=== PATIENT | female | born 1940 | race Caucasian/White ===

== ENCOUNTER → 2018-05-29 10:41 | Outpatient (CLI) | payer MEDICARE, SELFPAY ==
--- NOTE | 2018-05-29 13:38 | PFTCOMP ---
COMPLETE PULMONARY FUNCTION TEST INTERPRETATION Brief HPI: Patient is a 77 year old female, currently under the care of Dr. Bauer, who presents to [facility] for complete pulmonary function tests secondary to diagnosis of COPD. Respiratory therapist reports good effort and reproducible results. Interpretation: Forced expiration spirometry shows a severe large airways obstructive ventilatory defect with an FEV1 of 38% predicted. There is a significant bronchodilator response in FVC by ATS criteria. Spirograms are of good quality and plateau slowly, indicating slowly emptying areas of the lungs. The respiratory flow volume loop shows decreased expiratory flow rates at all lung volumes consistent with airway obstruction. Lung volumes by body plethysmography show a normal total lung capacity at 5.25 L, 115% predicted. FRC and RV are elevated out of proportion. Lung volume measurements are consistent with hyperinflation and air-trapping. Diffusion capacity by carbon monoxide was not reported. The airway resistance is elevated. No previous pulmonary function tests were available for review. Impression: Partially reversible severe large airways obstructive ventilatory defect resulting in air trapping with hyperinflation and consistent with patient's diagnosis of COPD.
--- NOTE | 2018-05-29 13:41 | PFTCOMP_ITS ---
COMPLETE PULMONARY FUNCTION TEST INTERPRETATION Brief HPI: Patient is a 77 year old female, currently under the care of Dr. Bauer , who presents to [facility] for complete pulmonary function tests secondary to diagnosis of COPD. Respiratory therapist reports good effort and reproducible results. Interpretation: Forced expiration spirometry shows a severe large airways obstructive ventilatory defect with an FEV1 of 38% predicted. There is a significant bronchodilator response in FVC by ATS criteria. Spirograms are of good quality and plateau slowly, indicating slowly emptying areas of the lungs. The respiratory flow volume loop shows decreased expiratory flow rates at all lung volumes consistent with airway obstruction. Lung volumes by body plethysmography show a normal total lung capacity at 5.25 L , 115% predicted. FRC and RV are elevated out of proportion. Lung volume measurements are consistent with hyperinflation and air-trapping. Diffusion capacity by carbon monoxide was not reported. The airway resistance is elevated. No previous pulmonary function tests were available for review. Impression: Partially reversible severe large airways obstructive ventilatory defect resulting in air trapping with hyperinflation and consistent with patient's diagnosis of COPD.
== END ==
PROVIDERS: Family Provider Family Medicine; PCP Family Medicine; Visit Provider Internal Medicine Critical Care Medicine
DX: J44.9 Chronic obstructive pulmonary disease, unspecified (principal); F17.201 Nicotine dependence, unspecified, in remission
CPT/HCPCS: 94060; 94726; 94729

== ENCOUNTER → 2018-06-10 10:56 | Outpatient (CLI) | payer MEDICARE, SELFPAY ==
[2018-06-10 11:28] VITALS: PULSE 91; PULSE 92; PULSE 93; PULSE 95; PULSE 96; PULSE 99; O2SAT 88; O2SAT 89; O2SAT 92; O2SAT 93; O2SAT 95; O2SAT 98
--- NOTE | 2018-06-10 11:30 | CPS ---
Patient began 6 min walk test and at the 3 minute jose armando the patient's Room Air pulse ox was 88%. Patient was started on 2L. Patient continued 6 min walk test on 2L patient's pulse ox stayed above 89% for the remainder of test. Nanci Rose RRT
--- NOTE | 2018-06-10 13:43 | PCM.PSN.6M ---
PSN 6 Minute Walk Test - 6 Minute Walk Test 6 Minute Walk Test: 6 Minute Walk Test PSN:6-Minute Walk Test Start: 06/10/18 11:28 Freq: Status: Active Protocol: RESP.6MINW Document 06/10/18 11:28 ANDREW (Rec: 06/10/18 11:33 [id number] [id number]) 6 Minute Walk Test Date Performed 06/10/18 Time Performed 11:00 Height 5 ft 3 in Weight: 70.632 kg Weight in Pounds 155.[address]: Leonardo Bauer Assistive device used: None Pre-test Oxygen Delivery Method Room Air Pulse Ox (%) 95 Pulse Rate (60-100 beats/min) 92 Dyspnea Mariama Scale (0-10) 1 Exertion Mariama Scale (6-20) 6 1st minute Oxygen Delivery Method Room Air Pulse Ox (%) 92 Pulse Rate (60-100 beats/min) 99 2nd minute Oxygen Delivery Method Room Air Pulse Ox (%) 89 Pulse Rate (60-100 beats/min) 99 3rd minute Oxygen Delivery Method Room Air Pulse Ox (%) 88 Pulse Rate (60-100 beats/min) 95 4th minute Oxygen Flow Rate (L/min) (L/min) 2 Oxygen Delivery Method Nasal Cannula Pulse Ox (%) 95 Pulse Rate (60-100 beats/min) 91 5th minute Oxygen Flow Rate (L/min) (L/min) 2 Oxygen Delivery Method Nasal Cannula Pulse Rate (60-100 beats/min) 93 Dyspnea Mariama Scale (0-10) 97 6th minute Oxygen Flow Rate (L/min) (L/min) 2 Oxygen Delivery Method Nasal Cannula Pulse Ox (%) 93 Pulse Rate (60-100 beats/min) 99 Dyspnea Mariama Scale (0-10) 2 Exertion Mariama Scale (6-20) 13 Post-test Oxygen Flow Rate (L/min) (L/min) 2 Oxygen Delivery Method Nasal Cannula Pulse Ox (%) 98 Pulse Rate (60-100 beats/min) 96 Full Laps Walked 16 Partial Lap, Number of Tiles Walked 25 Total Distance Walked (ft) 969 06/10/18 11:30 Cardiopulmonary Services by Nanci Berg Patient began 6 min walk test and at the 3 minute jose armando the patient's Room Air pulse ox was 88%. Patient was started on 2L. Patient continued 6 min walk test on 2L patient's pulse ox stayed above 89% for the remainder of test. Nancijeanine Rose RRT Initialized on 06/10/18 11:30 - END OF NOTE - Interpretation Interpretation: The patient was able to ambulate 969 feet over the course of 6 minutes on room air with no assistive devices or breaks. The patient did desaturate to 88% in the third minute of ambulation, but improved to 95% on 2 L. No significant tachycardia was noted. These findings are consistent with a respiratory limitation exercise tolerance. - Recommendations Recommendations: No supplemental oxygen is indicated at rest, but patient should be using 2 L nasal cannula with any exertion.
== END ==
PROVIDERS: Family Provider Family Medicine; PCP Family Medicine; Visit Provider Internal Medicine Critical Care Medicine
DX: J44.9 Chronic obstructive pulmonary disease, unspecified (principal); F17.201 Nicotine dependence, unspecified, in remission
CPT/HCPCS: 94618

== ENCOUNTER → 2018-06-12 14:07 | Outpatient (CLI) | payer MEDICARE, SELFPAY | PROVIDERS: Family Provider Family Medicine; PCP Family Medicine; Visit Provider Internal Medicine Critical Care Medicine | DX: R91.8 Other nonspecific abnormal finding of lung field (principal) | CPT/HCPCS: 71250 ==

== ENCOUNTER → 2018-06-16 11:55 | Outpatient (CLI) | payer MEDICARE, SELFPAY ==
[2018-06-16 14:06] LABS: Absolute Lymphocyte Count 2.68 X10^3/ul (0.83-4.51); Absolute Neutrophil Count 5.7 X10^3/uL (2.0-7.7); Basophil# 0.03 X10^3/uL; Basophil% 0.3 % (0-1); Eosinophils% 2.1 % (0-5); Hematocrit 42.8 % (37-47); Hemoglobin 14.4 g/dl (12.0-15.0); Lymphocyte # 2.68 X10^3/ul (4.0); Lymphocyte % 28.3 % (19-41); Mean Corp Hgb Conc 33.6 g/gl (32-36); Mean Corpuscular Hgb 30.9 pg (27.0-32.0); Mean Corpuscular Volume 91.8 fL (81-99); Mean Platelet Vol. 9.5 fl (6.2-12.0); Monocyte# 0.85 X10^3/uL; Neutrophil # 5.69 X10^3/uL (2.7-7.7); Neutrophil % 60.1 % (47-70); Platelet Count 249 K/mm3 (150-450); RBC Distribution Width CV 13.2 % (11.6-14.6); RBC Distribution Width SD 43.4 fl (35.1-43.9); Red Blood Count 4.66 M/mm3 (4.2-5.4); White Blood Count 9.5 K/mm3 (4.4-11.0)
[2018-06-16 14:10] LABS: POSITIVE COUNT NO; POSITIVE DIFFERENTIAL NO; POSITIVE MORPHOLOGY NO
[2018-06-19 03:08] LABS: Alternaria alternata <0.10 kU/L (Class 0); Bermuda Grass <0.10 kU/L (Class 0); Bluegrass, Kentucky <0.10 kU/L (Class 0); Cat Hair/Dander, Standard <0.10 kU/L (Class 0); D farinae Mite <0.10 kU/L (Class 0); D pteronyssinus <0.10 kU/L (Class 0); Dog Epithelia <0.10 kU/L (Class 0); Elm, American White <0.10 kU/L (Class 0); Oak, White <0.10 kU/L (Class 0); Plantain, English <0.10 kU/L (Class 0); Ragweed, Short/Common <0.10 kU/L (Class 0)
[2018-06-20 09:45] LABS: Mouse Urine <0.10 kU/L (Class 0)
[2018-06-20 20:07] LABS: Aspirgillus flavus Negative (Neg:<1:1); Aspirgillus fumigatus Negative (Neg:<1:1); Aspirgillus niger Negative (Neg:<1:1)
[2018-06-23 12:57] LABS: Immunoglobulin E 183 IU/mL (0-100)
== END ==
PROVIDERS: Family Provider Family Medicine; PCP Family Medicine; Visit Provider Nurse Practitioner Acute Care
DX: J44.9 Chronic obstructive pulmonary disease, unspecified (principal)
CPT/HCPCS: 36415; 82785; 85025; 86003; 86606

== ENCOUNTER → 2019-01-22 10:40 | Outpatient (CLI) | payer MEDICARE, SELFPAY ==
[2019-01-22 09:42] VITALS: BMI 28.3
== END ==
PROVIDERS: Family Provider Family Medicine; PCP Family Medicine; Referring Provider Internal Medicine Critical Care Medicine; Visit Provider Internal Medicine Critical Care Medicine
DX: J44.9 Chronic obstructive pulmonary disease, unspecified (principal)
CPT/HCPCS: 87633

== ENCOUNTER → 2019-07-16 10:56 | Outpatient (CLI) | payer MEDICARE, SELFPAY ==
[2019-07-16 10:15] VITALS: BMI 28.3
== END ==
PROVIDERS: Family Provider Family Medicine; PCP Family Medicine; Referring Provider Nurse Practitioner Acute Care; Visit Provider Nurse Practitioner Acute Care
DX: J47.9 Bronchiectasis, uncomplicated (principal)
CPT/HCPCS: 94667

== ENCOUNTER → 2020-08-31 13:13 | Outpatient (CLI) | payer MEDICARE, SELFPAY ==
[2020-08-18 09:47] VITALS: BMI 26.6
--- NOTE | 2020-08-31 13:19 | CT_ITS ---
STUDY: LOW DOSE CT LUNG CANCER SCREENING REASON FOR EXAM: Female, 79 years old. 1PPD X 44 YRS. COPD RADIATION DOSAGE (If Supplied By Facility): CTDIvol = ( 1.70 ) mGy, DLP = ( 56.79 ) mGycm TECHNIQUE: No contrast was administered. Low dose technique was utilized (average mAS-38 and kVp 120). 1.25 mm axial source images with a slice interval of 1.25-mm were reconstructed in lung windows. 2.5 mm axial source images with a slice interval of 2.5-mm were reconstructed in lung windows. 5.0 mm axial source images with a slice interval of 5.0-mm were reconstructed in soft tissue windows. Nodule measured using lung windows on PACS and/or independent workstation with automated measurement of minimum and maximum diameter. Nodule measurement reported as average diameter rounded to the nearest whole number. Growth is defined as an increase ins size of greater than 1.5 mm. COMPARISON: Comparison is made with prior study dated 06/12/2018. NODULES: Stable 4.1 mm noncalcified nodule in the peripheral lateral anterior aspect of the right lower lobe. Stable 4 mm noncalcified nodule in the posterior medial aspect of the right upper lobe as seen on axial image #41. Emphysema: Diffuse emphysema with centrilobular changes. Stable linear scar in the inferior lateral portion of the lingular segment of the left upper lobe. Endobronchial lesion: None Aorta: Atherosclerotic plaque formation of the aortic arch. Coronary arteries: Coronary artery calcification. Mediastinal nodes: Small benign appearing mediastinal lymph nodes. Other chest and abdominal findings: CT/Low Dose CT Lung Screening IMPRESSION: Lung-RADS category 2 - Continue annual screening with LDCT in 12 months. Stable examination. IMPORTANT NOTES FOR USE: ACR Lung-RADS Version 1.0 Assessment Categories Release Date: February 15, 2014 Category: Coded 0-4 bases on nodule(s) with highest degree of suspicion. Negative screen is defined as categories 1 and 2; a positive screen is defined as categories 3 and 4. Category 3 and 4A nodules that are unchanged on interval CT should be coded as category 2, and individuals returned to screening in 12 months. Category 4X: Category 3 or 4 nodules with additional imaging findings that increase the suspicion of lung cancer, such as spiculation, GGN that doubles in size in 1 year, enlarged lymph notes, etc. Category Modifiers: S (significant finding unrelated to lung cancer) and C (prior history of treated lung cancer) may be added to the 0-4 Lung-RADS Electronically Signed: Gasper Dejesus, at 14:11 EST , Service support ,
== END ==
PROVIDERS: PCP Family Medicine; Referring Provider Nurse Practitioner Acute Care; Visit Provider Nurse Practitioner Acute Care
DX: Z12.2 Encounter for screening for malignant neoplasm of respiratory organs (principal); Z87.891 Personal history of nicotine dependence
CPT/HCPCS: G0297

== ENCOUNTER → 2022-02-20 | Outpatient (CLI) | payer MEDICARE, SELFPAY ==
--- NOTE | 2022-02-20 13:10 | RAD_ITS ---
STUDY: X-RAY CHEST REASON FOR EXAM: Female, 81 years old. Cough TECHNIQUE: PA and lateral views of the chest. COMPARISON: None. FINDINGS: There is hyperinflation of the lungs consistent with chronic obstructive lung disease (COPD). There is no demonstrated pleural abnormality. Normal size heart. Normal mediastinum and robel. Normal visualized pulmonary arteries. There is atherosclerotic calcification of the aortic arch with tortuosity. There are diffuse degenerative changes of the visualized thoracic spine. Normal visualized ribs, clavicles, and shoulders. There is no demonstrated abnormality of the visualized soft tissue structures of the upper abdomen. RAD/Chest PA and Lateral IMPRESSION: Hyperinflation. The lungs are clear. Electronically Signed: Gasper Dejesus MD at 13:27 EDT ,
[2022-02-20 13:34] LABS: Anion Gap 6 (5-15); BUN 15 mg/dL (7-18); BUN/Creat Ratio 13.5 RATIO (10-20); Calcium,Total 9.9 mg/dL (8.5-10.1); Chloride 100 mmol/L (98-107); Creatinine, Serum 1.11 mg/dL (0.55-1.02); EST Glomerular Filtration Rate 50 mL/min (>60); Est Glom Filt Rate - Afr Amer 61 mL/min (>60); Glucose 97 mg/dL (74-106); Potassium 3.7 mmol/L (3.5-5.1); Sodium Level 138 mmol/L (136-145)
[2022-02-20 13:35] LABS: BNP,B-Type NATRIURETIC PEPTIDE 21.2 pg/mL (0-100)
== END | disposition home or self-care (01) ==
PROVIDERS: PCP Family Medicine; Referring Provider Nurse Practitioner Acute Care; Visit Provider Nurse Practitioner Acute Care
DX: R06.02 Shortness of breath (principal); J44.9 Chronic obstructive pulmonary disease, unspecified; R50.9 Fever, unspecified
CPT/HCPCS: 36415; 71046; 80048; 83880; 87804; 87807; C9803

== ENCOUNTER → 2022-02-26 | Outpatient (CLI) | payer MEDICARE, SELFPAY ==
--- NOTE | 2022-02-26 13:38 | CT_ITS ---
STUDY: CTA CHEST REASON FOR EXAM: Female, 81 years old. 5 day history of shortness of breath. COPD. RADIATION DOSAGE (If Supplied By Facility): CTDIvol = ( 9.56 ) mGy, DLP = ( 346.36 ) mGycm TECHNIQUE: The examination was performed with the intravenous administration of IV 100mL Isovue-370. Post-processing of the angiographic images was performed, with multiplanar reformation and 3D reconstruction. Individualized dose optimization techniques were used for this CT. COMPARISON: Comparison is made with prior study dated 08/31/2020. FINDINGS: Normal enhancement of the main pulmonary artery and right and left pulmonary arteries. Normal enhancement of the bilateral peripheral pulmonary arteries. There is no demonstrated pulmonary embolism. There is atherosclerotic calcification of the aortic arch with tortuosity. There is no demonstrated aortic dissection. Normal heart and pericardium. Normal mediastinum. Normal hilar regions. Normal visualized trachea and bronchi. Hyperinflation. Diffuse emphysematous changes with centrilobular emphysema more prominent in the upper lobes. Minimal increased markings at the right lung base suggestive of scarring. There is a 1 cm nodule in the posterior-lateral aspect of the right lower lobe as seen on axial image #61. This has increased in size as seen on prior study where it previously measured 7 mm. Normal pleura. Normal chest wall structures. There are degenerative changes of thoracic spine. Nonspecific bilateral perinephric stranding. There is a 1.5 centimeter cyst in the upper medial portion of the right kidney. Questionable 3.2 cm x 3.1 cm rounded soft tissue mass in the anterior midportion of the left kidney. Correlation with ultrasound is recommended. CT/CTA Chest W/WO Contrast IMPRESSION: No evidence of pulmonary embolism. 1 cm nodule in the posterolateral aspect of the right lower lobe as seen on axial image #61. Correlation with the PET scan recommended. Questionable 3.2 cm x 3.1 cm soft tissue mass in the anterior midportion of the left kidney. Correlation with ultrasound is recommended. Electronically Signed: Gasper Dejesus MD at 14:57 EDT ,
== END | disposition home or self-care (01) ==
LOC: CT 13:36
PROVIDERS: PCP Family Medicine; Referring Provider Nurse Practitioner Acute Care; Visit Provider Nurse Practitioner Acute Care
DX: R06.02 Shortness of breath (principal)
CPT/HCPCS: 71275; Q9967

== ENCOUNTER → 2022-03-30 | Outpatient (CLI) | payer MEDICARE, SELFPAY ==
--- NOTE | 2022-03-30 13:03 | US_ITS ---
STUDY: RENAL ULTRASOUND - COMPLETE REASON FOR EXAM: Female, 81 years old. NEOPLASM TECHNIQUE: Ultrasound evaluation of the kidneys was performed with real-time and static [place]-scale imaging. COMPARISON: Feb 26 2022 1:48pmCTA Chest FINDINGS: RIGHT KIDNEY: Normal location of the right kidney, which is normal in size. The right kidney measures cm. There is a normal cortex of the right kidney. The renal cortex measures 1.1 cm. There is right renal 17 x 19 mm cyst. No follow-up required. There are no right renal calculi. There is no right hydronephrosis. DISTAL RIGHT URETER: There is non-visualization of the distal right ureter. There is no demonstrated right ureterovesical junction calculus. There is a visualized right ureteral jet. LEFT KIDNEY: Normal location of the left kidney, which is normal in size. The left kidney measures 9.5 x 5.4 cm. There is a normal cortex of the left kidney. The renal cortex measures 1.4 cm. There is left renal cystic masses. There are 3. Superior cystic lesion measures 18 mm. This is a cyst. No follow-up required. Superior medial lesion measures 11 mm. This is a cyst. No follow-up required. Calcific solid mass measures 28 x 29mm. There are no left renal calculi. There is no left hydronephrosis. DISTAL LEFT URETER: There is non-visualization of the distal left ureter. There is no demonstrated left ureterovesical junction calculus. There is a visualized left ureteral jet. AORTA: There is obscuration of the abdominal aorta by overlying bowel gas I.V.C.: The IVC is obscured. BLADDER: The distended urinary bladder has a volume of 78 ml. There is a normal wall thickness of the distended urinary bladder. There is no demonstrated mass within the urinary bladder. There are no demonstrated bladder calculi. US/Kidney and Bladder IMPRESSION: Findings confirm the prior CT results, that there is a solid mass of the superior left kidney. Neoplasm is not excluded. Electronically Signed: Irvin Jacob MD at 15:16 EDT ,
--- NOTE | 2022-03-31 06:50 | PFTCOMP ---
COMPLETE PULMONARY FUNCTION TEST INTERPRETATION Brief HPI: Patient is a 81-year-old female, currently under the care of Dr. Bauer, who presents to [facility] for complete pulmonary function tests secondary to diagnosis of COPD. Respiratory therapist reports good effort and reproducible results. Interpretation: Forced expiration spirometry shows a severe large airways obstructive ventilatory defect with an FEV1 of 48% predicted. There is no significant bronchodilator response by strict ATS criteria. Spirograms are of good quality and plateau slowly, indicating slowly emptying areas of the lungs. The respiratory flow volume loop shows decreased expiratory flow rates at all lung volumes consistent with airway obstruction. Lung volumes by body plethysmography show a normal total lung capacity at 3.88 L, 85% predicted. All other lung volumes are within normal limits. Diffusion capacity by carbon monoxide is decreased at 47% predicted. The airway resistance is elevated. Compared to previous pulmonary function tests from 05/29/2018, there is been a significant improvement in air trapping and FEV1. Impression: Irreversible severe large airways obstructive ventilatory defect with a symmetric reduction diffusing capacity
== END | disposition home or self-care (01) ==
LOC: PSN 12:50 → US 13:02
PROVIDERS: PCP Family Medicine; Referring Provider Family Medicine; Visit Provider Family Medicine
DX: D41.02 Neoplasm of uncertain behavior of left kidney (principal); J44.9 Chronic obstructive pulmonary disease, unspecified
CPT/HCPCS: 76770; 94060; 94726; 94729

== ENCOUNTER → 2022-04-03 | Outpatient (CLI) | payer MEDICARE, SELFPAY ==
[2022-04-03 08:15] VITALS: PULSE 75; PULSE 78; PULSE 81; PULSE 84; PULSE 85; PULSE 86; PULSE 88; O2SAT 87; O2SAT 91; O2SAT 92; O2SAT 94; O2SAT 95; O2SAT 96; O2SAT 98
--- NOTE | 2022-04-03 08:52 | CPS ---
Patient wears 2L of oxygen at night. Test initiated on RA since patient's oxygen saturations were 95%. At the 3 minute jose armando, oxygen sat's dropped to 87% therefore oxygen was initiated at 2L. Sat's were maintained above 90% on 2L for the remainder of the test.
--- NOTE | 2022-04-03 12:28 | PCM.PSN.6M ---
PSN 6 Minute Walk Test 6 Minute Walk Test 6 Minute Walk Test: 6 Minute Walk Test PSN:6-Minute Walk Test Start: 04/03/22 08:48 Freq: Status: Active Protocol: RESP.6MINW Document 04/03/22 08:15 FRANKLYN (Rec: 04/03/22 08:54 [id number]) 6 Minute Walk Test Date Performed 04/03/22 Time Performed 08:15 Height 5 ft 3 in Weight: 65.771 kg Weight in Pounds 145.[address]: Leonardo Bauer Assistive device used: None Pre-test Oxygen Delivery Method Room Air Pulse Ox (%) 95 Pulse Rate (60-100 beats/min) 75 Dyspnea Mariama Scale (0-10) 0 Exertion Mariama Scale (6-20) 6 1st minute Oxygen Delivery Method Room Air Pulse Ox (%) 92 Pulse Rate (60-100 beats/min) 78 2nd minute Oxygen Delivery Method Room Air Pulse Ox (%) 91 Pulse Rate (60-100 beats/min) 85 3rd minute Oxygen Delivery Method Room Air Pulse Ox (%) 87 Pulse Rate (60-100 beats/min) 86 4th minute Oxygen Flow Rate (L/min) (L/min) 2 Oxygen Delivery Method Nasal Cannula Pulse Ox (%) 98 Pulse Rate (60-100 beats/min) 85 5th minute Oxygen Flow Rate (L/min) (L/min) 2 Oxygen Delivery Method Nasal Cannula Pulse Ox (%) 94 Pulse Rate (60-100 beats/min) 88 6th minute Oxygen Flow Rate (L/min) (L/min) 2 Oxygen Delivery Method Nasal Cannula Pulse Ox (%) 94 Pulse Rate (60-100 beats/min) 84 Post-test Oxygen Flow Rate (L/min) (L/min) 2 Oxygen Delivery Method Nasal Cannula Pulse Ox (%) 96 Pulse Rate (60-100 beats/min) 81 Dyspnea Mariama Scale (0-10) 0.5 Exertion Mariama Scale (6-20) 11 Full Laps Walked 19 Partial Lap, Number of Tiles Walked 12 Total Distance Walked (ft) 1133 04/03/22 08:52 Cardiopulmonary Services by Diamond Roque Patient wears 2L of oxygen at night. Test initiated on RA since patient's oxygen saturations were 95%. At the 3 minute jose armando, oxygen sat's dropped to 87% therefore oxygen was initiated at 2L. Sat's were maintained above 90% on 2L for the remainder of the test. Initialized on 04/03/22 08:52 - END OF NOTE Interpretation Interpretation: The patient ambulated 1133 feet over the course of 6 minutes beginning on room air without assistive devices. Pretesting oxygen saturation was noted to be 95% on room air. With ambulation, the noah oxygen saturation was 87%. 2 L/min of supplemental oxygen was applied, and the patient was able to complete the remainder of the test while maintaining appropriate saturations. Recommendations Recommendations: 2 L/min of supplemental oxygen should be utilized with exertion.
== END | disposition home or self-care (01) ==
LOC: PSN 08:17
PROVIDERS: PCP Family Medicine; Referring Provider Internal Medicine Critical Care Medicine; Visit Provider Internal Medicine Critical Care Medicine
DX: J44.9 Chronic obstructive pulmonary disease, unspecified (principal)
CPT/HCPCS: 94618

== ENCOUNTER → 2022-05-30 | Outpatient (CLI) | payer MEDICARE, SELFPAY ==
--- NOTE | 2022-05-30 13:52 | CT_ITS ---
STUDY: CT CHEST WITHOUT CONTRAST REASON FOR EXAM: Female, 81 years old. Lung Nodule follow up RADIATION DOSAGE (If Supplied By Facility): CTDIvol = ( 7.48 ) mGy, DLP = ( 243.33 ) mGycm TECHNIQUE: Transaxial imaging was performed without the administration of intravenous contrast material. Multiplanar coronal and sagittal images were reformatted. Individualized dose optimization techniques were used for this CT. COMPARISON: Comparison is made with prior examination 02/26/2022. FINDINGS: CHEST Stable benign appearing bilateral axillary lymph. Hyperinflation. Emphysematous changes. Stable scarring at both lung apices. The previously seen nodular density in the peripheral lateral aspect of the right lower lobe has decreased slightly in size measuring 7.8 mm. This most likely represents a focal area of scarring. Stable 3 mm noncalcified nodule in the anterior aspect of the right lower lobe. Stable lingular scarring. There is no demonstrated pleural abnormality. There are calcifications of the coronary arteries. There are multiple small lymph nodes within the mediastinum, which are normal in size and morphology most compatible with reactive lymph hyperplasia. Normal hilar regions. Normal unenhanced pulmonary arteries. There is atherosclerotic calcification of the aortic arch with tortuosity and elongation of the aortic arch and descending thoracic aorta. There are multi-level degenerative changes of the thoracic spine. Nonspecific bilateral perinephric stranding. I suspect a 1.4 cm cyst in the upper medial aspect of the left kidney. CT/Chest without Contrast IMPRESSION: Slight decrease in size of the right lower lobe nodule most likely secondary to scarring. Electronically Signed: Gasper Dejesus MD at 14:52 EDT ,
== END | disposition home or self-care (01) ==
LOC: CT 13:41
PROVIDERS: PCP Family Medicine; Referring Provider Internal Medicine Critical Care Medicine; Visit Provider Internal Medicine Critical Care Medicine
DX: R91.1 Solitary pulmonary nodule (principal)
CPT/HCPCS: 71250

== ENCOUNTER → 2022-09-28 | Outpatient (CLI) | payer MEDICARE, SELFPAY ==
--- NOTE | 2022-09-28 14:08 | CT_ITS ---
INDICATION: follow lung nodule EXAMINATION: CT CHEST WITHOUT CONTRAST - CT Chest W/O Contrast Injection TECHNIQUE: Helically acquired images were obtained of the chest. A radiation dose optimization technique was used for this scan. IV Contrast dosage and agent: None. COMPARISON: May 30, 2022 FINDINGS: LUNGS, PLEURA AND LARGE AIRWAYS: Diffuse interstitial thickening and emphysematous changes most pronounced in the upper lobes. Minor subsegmental atelectasis in the right lower lobe. Tiny nodule in the right lower lobe measuring approximately 6 mm in size. No pleural effusion or thickening. No pneumothorax. THYROID: No thyroid lesions. HEART AND PERICARDIUM: Heart size is normal. No pericardial effusion. CORONARY ARTERIES: Mild coronary artery calcification VESSELS: Atherosclerotic changes of the aorta without evidence for aneurysm. MEDIASTINUM AND LUIS FERNANDO: Subcentimeter mediastinal nodes likely benign. No hilar adenopathy.. Esophagus is unremarkable. No hiatal hernia. UPPER ABDOMEN: There is a simple cyst in left kidney which will not require additional imaging. BONES: Dorsal spine demonstrates arthritic changes. CT/Chest without Contrast IMPRESSION: ASHD and chronic interstitial and emphysematous changes. Tiny nodule in the right lower lobe stable since previous exam. Electronically Signed: Lazaro Gautam MD at 19:41 EST Reading Location ID and State: [facility] / [place] , Service support ,
== END | disposition home or self-care (01) ==
LOC: CT 14:07
PROVIDERS: PCP Family Medicine; Referring Provider Nurse Practitioner Acute Care; Visit Provider Nurse Practitioner Acute Care
DX: R91.1 Solitary pulmonary nodule (principal)
CPT/HCPCS: 71250